=== PATIENT | female | born 1955 | race Hispanic/Latino ===

== ENCOUNTER 2017-11-28 13:08 | Inpatient (IN) | payer OTHER ==
[~2017-11-28] VITALS: Ht 154.9 cm; Wt 81.7 kg
[2017-11-28] MEDS ORDERED: SODIUM CHLORIDE 0.9% 1000ML 1,000 ML IV ONE (14:45)
[2017-11-28] MEDS ORDERED: ACETAMINOPHEN 325 MG TAB ONE (14:46)
[2017-11-28 14:50] LABS: BASOPHILS % (AUTO) 0.2 % (0.0-5.0); EOSINOPHILS % (AUTO) 0.2 % (0.0-8.0); HEMATOCRIT 34.5 % (36-48); LYMPHOCYTES % (AUTO) 6.2 % (21.0-51.0); MEAN CORPUSCULAR HEMOGLOBIN 30.8 pg (27.0-33.0); MEAN CORPUSCULAR HGB CONC 34.2 g/dL (32.0-36.0); MEAN CORPUSCULAR VOLUME 90.2 fL (79-99); MONOCYTES % (AUTO) 2.6 % (3.0-13.0); NEUTROPHILS % (AUTO) 90.8 % (40.0-77.0); PLATELET COUNT (AUTO) 242 K/uL (130-400); RED BLOOD CELL COUNT(AUTO) 3.82 MIL/uL (4.00-5.50); RED CELL DISTRIBUTION WIDTH 13.3 % (11.0-15.5); WHITE BLOOD COUNT (AUTO) 10.6 K/uL (4.8-10.8)
[2017-11-28 14:59] LABS: CREATININE 2.1 mg/dL (0.5-1.5); POTASSIUM 4.9 mmol/L (3.5-5.1)
[2017-11-28 15:04] LABS: BILIRUBIN,TOTAL 0.5 mg/dL (0.2-1.0); TOTAL PROTEIN, SERUM 7.7 g/dL (6.0-8.3)
[2017-11-28 15:32] LABS: APPEARANCE,URINE SL CLOUDY (CLEAR); BILIRUBIN,URINE NEGATIVE (NEGATIVE); COLOR,URINE YELLOW (YELLOW); GLUCOSE, URINE (UA) 100 mg/dL (NEGATIVE); KETONES,URINE NEGATIVE (NEGATIVE); LEUKOCYTE ESTERASE ,URINE TRACE (NEGATIVE); NITRATE,URINE NEGATIVE (NEGATIVE); OCCULT BLOOD,URINE MODERATE (NEGATIVE); PH,URINE 5.5 (5.0-8.0); PROTEIN,URINE >=300 (NEGATIVE); UROBILINOGEN,URINE 0.2 mg/dL (0.2-1.0)
[2017-11-28] MEDS ORDERED: METOPROLOL TARTRATE 1 MG/ML 5ML VIAL IV ONE (15:53)
[2017-11-28 16:03] LABS: AMORPHOUS SEDIMENT,UR Few /LPF (None Seen); BACTERIA,URINE Moderate /HPF (None Seen); SQUAMOUS EPITHELIAL CELL,UR Rare /HPF (0-2)
[2017-11-28] MEDS ORDERED: CEFTRIAXONE SODIUM 1 GM ONE (16:24)
[2017-11-28] MEDS ORDERED: ONDANSETRON HCL 4 MG/2 ML VIAL ONE (16:47)
[2017-11-28] MEDS ORDERED: GLIP10TA9 PO (19:12)
[2017-11-28] MEDS ORDERED: FOSI40TA4 PO (19:12)
[2017-11-28] MEDS ORDERED: NITROGLYCERIN 1GM/1 INCH PACKET TD SCH (19:15)
[2017-11-28] MEDS ORDERED: SODIUM CHLORIDE 0.9% 1000ML 1,000 ML IV SCH (19:15)
[2017-11-28 20:00] VITALS: BP 214/102
[2017-11-28] MEDS: HYDRALAZINE HCL 20 MG/ML VIAL IV PRN (20:18)
[2017-11-28] MEDS ORDERED: GLUCAGON 1MG KIT 1 MG ML IM PRN (20:30)
[2017-11-28 21:33] VITALS: BP 133/68
[2017-11-28 23:44] VITALS: BP 157/74
[2017-11-29] MEDS: LISINOPRIL 40 MG TABLET PO SCH ×2 (00:16→08:14)
[2017-11-29] MEDS: HYDRALAZINE HCL 20 MG/ML VIAL IV PRN ×2 (00:17→17:32)
[2017-11-29] MEDS: FAMOTIDINE/PF 20 MG/2 ML VIAL IV SCH ×3 (00:21→20:38)
[2017-11-29] MEDS: INSULIN HUMULIN R 100 UNIT/ML 3ML SQ SCH ×5 (00:32→20:38)
[2017-11-29 04:00] VITALS: BP 127/59
[2017-11-29 05:08] LABS: ALBUMIN 2.4 g/dL (3.5-5.0); CREATININE 2.1 mg/dL (0.5-1.5); PHOSPHORUS 3.3 mg/dL (2.5-4.9); POTASSIUM 3.8 mmol/L (3.5-5.1)
[2017-11-29] MEDS: GLIPIZIDE 5 MG TABLET PO SCH ×2 (08:14→17:32)
[2017-11-29] MEDS: CEFTRIAXONE SODIUM 1 GM IVP SCH (08:15)
[2017-11-29] MEDS: ENOXAPARIN SODIUM 40 MG/0.4 ML SYRINGE SQ SCH (08:16)
[2017-11-29 08:23] VITALS: BP 174/77
[2017-11-29] MEDS ORDERED: CEFTRIAXONE 1GM/D5W 50ML 50 ML IV SCH (09:00)
[2017-11-29 12:24] VITALS: BP 186/81
[2017-11-29 16:11] LABS: PROTEIN,URINE RANDOM 148.7 mg/dL (0-11.9)
[2017-11-29 16:47] VITALS: BP 185/88
[2017-11-29 19:41] VITALS: BP 148/61
[2017-11-29] MEDS: METOPROLOL TARTRATE 50 MG TAB PO SCH (20:38)
[2017-11-29 23:32] VITALS: BP 125/55
[2017-11-30] VITALS (7 sets, daily range): BP systolic 123–190; BP diastolic 57–76
[2017-11-30] MEDS: HYDRALAZINE HCL 20 MG/ML VIAL IV PRN (04:53)
[2017-11-30 05:34] LABS: HEMATOCRIT 30.2 % (36-48); MEAN CORPUSCULAR HEMOGLOBIN 31.3 pg (27.0-33.0); MEAN CORPUSCULAR HGB CONC 34.4 g/dL (32.0-36.0); MEAN CORPUSCULAR VOLUME 90.8 fL (79-99); PLATELET COUNT (AUTO) 196 K/uL (130-400); RED BLOOD CELL COUNT(AUTO) 3.33 MIL/uL (4.00-5.50); RED CELL DISTRIBUTION WIDTH 13.1 % (11.0-15.5); WHITE BLOOD COUNT (AUTO) 6.4 K/uL (4.8-10.8)
[2017-11-30] MEDS: INSULIN HUMULIN R 100 UNIT/ML 3ML SQ SCH ×4 (05:48→21:00)
[2017-11-30 05:50] LABS: CREATININE 2.1 mg/dL (0.5-1.5); PHOSPHORUS 4.2 mg/dL (2.5-4.9); POTASSIUM 3.1 mmol/L (3.5-5.1)
[2017-11-30] MEDS: DEXTROSE 50%-WATER 50 ML DISP.SYRIN IV PRN ×2 (06:13→16:14)
[2017-11-30 06:22] LABS: EOSINOPHILS % (MANUAL) 1 % (1-6); LYMPHOCYTES % (MANUAL) 16 % (22-44); MAN.DIFF COMMENT-IMPRESSION MANUAL DIFFERENTIAL; MONOCYTES % (MANUAL) 6 % (2-9); PLATELET MORPHOLOGY COMMENT ADEQUATE; SEGMENTED NEUTROPHILS % 77 % (40-70)
[2017-11-30] MEDS: FAMOTIDINE/PF 20 MG/2 ML VIAL IV SCH ×2 (08:34→21:56)
[2017-11-30] MEDS: GLIPIZIDE 5 MG TABLET PO SCH ×2 (08:35→16:33)
[2017-11-30] MEDS: METOPROLOL TARTRATE 50 MG TAB PO SCH ×2 (08:35→21:56)
[2017-11-30] MEDS: CEFTRIAXONE SODIUM 1 GM IVP SCH (08:35)
[2017-11-30] MEDS: LISINOPRIL 40 MG TABLET PO SCH (08:35)
[2017-11-30] MEDS: ENOXAPARIN SODIUM 40 MG/0.4 ML SYRINGE SQ SCH (08:36)
[2017-11-30] MEDS: POTASSIUM CHLORIDE 20 MEQ ERTAB PO SCH (11:26)
[2017-11-30] MEDS ORDERED: DEXTROSE 10%-WATER 1,000 ML IV SCH (18:45)
[2017-12-01 04:20] VITALS: BP 189/83
[2017-12-01] MEDS: HYDRALAZINE HCL 20 MG/ML VIAL IV PRN (04:52)
[2017-12-01 06:13] VITALS: BP 119/51
[2017-12-01] MEDS: INSULIN HUMULIN R 100 UNIT/ML 3ML SQ SCH ×4 (06:15→21:00)
[2017-12-01 07:07] LABS: POTASSIUM 2.9 mmol/L (3.5-5.1)
[2017-12-01] MEDS ORDERED: POTASSIUM CHLORIDE 20 MEQ ERTAB PO SCH (07:30)
[2017-12-01 08:00] VITALS: BP 122/57
[2017-12-01] MEDS: GLIPIZIDE 5 MG TABLET PO SCH (08:00)
[2017-12-01] MEDS: METOPROLOL TARTRATE 50 MG TAB PO SCH ×2 (08:59→19:55)
[2017-12-01] MEDS: CEFTRIAXONE SODIUM 1 GM IVP SCH (08:59)
[2017-12-01] MEDS: FAMOTIDINE/PF 20 MG/2 ML VIAL IV SCH ×2 (08:59→19:55)
[2017-12-01] MEDS: LISINOPRIL 40 MG TABLET PO SCH (08:59)
[2017-12-01] MEDS: ENOXAPARIN SODIUM 40 MG/0.4 ML SYRINGE SQ SCH (09:01)
[2017-12-01] MEDS ORDERED: ACETAMINOPHEN 325 MG TAB PO PRN (09:30)
[2017-12-01] MEDS: LOPERAMIDE HCL 2 MG CAP PO PRN ×2 (09:42→22:56)
[2017-12-01] MEDS: METRONIDAZOLE 500 MG TABLET PO SCH ×2 (09:42→16:39)
[2017-12-01] MEDS: POTASSIUM CHLORIDE 20 MEQ ERTAB PO SCH (10:45)
[2017-12-01 11:00] VITALS: BP 126/59
[2017-12-01 15:47] VITALS: BP 154/69
[2017-12-01] MEDS: DEXTROSE 10% IV SCH (17:42)
[2017-12-01] MEDS: WATER IV SCH (17:42)
[2017-12-01] MEDS: POTASSIUM CHLORIDE IV SCH (17:42)
[2017-12-01 20:29] VITALS: BP 157/66
[2017-12-02 00:31] VITALS: BP 122/42
[2017-12-02] MEDS: METRONIDAZOLE 500 MG TABLET PO SCH ×3 (02:03→16:54)
[2017-12-02 03:57] VITALS: BP 127/51
[2017-12-02] MEDS: INSULIN HUMULIN R 100 UNIT/ML 3ML SQ SCH ×4 (05:40→21:00)
[2017-12-02 07:00] VITALS: BP 126/38
[2017-12-02] MEDS: POTASSIUM CHLORIDE 20 MEQ ERTAB PO SCH (09:11)
[2017-12-02] MEDS: LISINOPRIL 40 MG TABLET PO SCH (09:21)
[2017-12-02] MEDS: METOPROLOL TARTRATE 50 MG TAB PO SCH ×2 (09:21→20:15)
[2017-12-02] MEDS: FAMOTIDINE/PF 20 MG/2 ML VIAL IV SCH ×2 (09:21→20:15)
[2017-12-02] MEDS: CEFTRIAXONE SODIUM 1 GM IVP SCH (09:23)
[2017-12-02] MEDS: ENOXAPARIN SODIUM 40 MG/0.4 ML SYRINGE SQ SCH (09:23)
[2017-12-02 11:14] VITALS: BP 155/62
[2017-12-02 15:37] VITALS: BP 137/65
[2017-12-02] MEDS: DEXTROSE 10% IV SCH (16:54)
[2017-12-02] MEDS: WATER IV SCH (16:54)
[2017-12-02] MEDS: POTASSIUM CHLORIDE IV SCH (16:54)
[2017-12-02 19:54] VITALS: BP 147/83
[2017-12-03 00:31] VITALS: BP 170/71
[2017-12-03] MEDS: METRONIDAZOLE 500 MG TABLET PO SCH ×3 (01:38→17:34)
[2017-12-03 04:31] VITALS: BP 152/51
[2017-12-03] MEDS: INSULIN HUMULIN R 100 UNIT/ML 3ML SQ SCH ×4 (06:20→17:35)
[2017-12-03 07:00] VITALS: BP 132/44
[2017-12-03] MEDS: CEFTRIAXONE SODIUM 1 GM IVP SCH (09:47)
[2017-12-03] MEDS: ENOXAPARIN SODIUM 40 MG/0.4 ML SYRINGE SQ SCH (09:48)
[2017-12-03] MEDS: LISINOPRIL 40 MG TABLET PO SCH (09:48)
[2017-12-03] MEDS: FAMOTIDINE/PF 20 MG/2 ML VIAL IV SCH (09:48)
[2017-12-03] MEDS: METOPROLOL TARTRATE 50 MG TAB PO SCH (09:48)
[2017-12-03] MEDS: DEXTROSE 10% IV SCH (09:49)
[2017-12-03] MEDS: POTASSIUM CHLORIDE IV SCH (09:49)
[2017-12-03] MEDS: POTASSIUM CHLORIDE 20 MEQ ERTAB PO SCH (09:49)
[2017-12-03] MEDS: WATER IV SCH (09:49)
[2017-12-03 11:00] VITALS: BP 148/58
[2017-12-03 15:00] VITALS: BP 149/98
[2017-12-03] MEDS ORDERED: FOSI40TA4 PO (15:20)
[2017-12-03] MEDS ORDERED: METR500T PO (15:20)
== END 2017-12-03 18:00 | disposition home or self-care (01) | DRG 683 ==
LOC: EDH 13:08 → OBSVTOIN 13:09 → EDHIP 13:09 → 3AH 18:35
PROVIDERS: ADMIT Internal Medicine Nephrology; ATTEND Internal Medicine Nephrology
DX: N17.9 Acute kidney failure, unspecified (principal); I16.9 Hypertensive crisis, unspecified; E11.21 Type 2 diabetes mellitus with diabetic nephropathy; E11.51 Type 2 diabetes mellitus with diabetic peripheral angiopathy without gangrene; N30.00 Acute cystitis without hematuria; K52.9 Noninfective gastroenteritis and colitis, unspecified; R80.9 Proteinuria, unspecified; E87.8 Other disorders of electrolyte and fluid balance, not elsewhere classified; N18.9 Chronic kidney disease, unspecified; D64.9 Anemia, unspecified; I12.9 Hypertensive chronic kidney disease with stage 1 through stage 4 chronic kidney disease, or unspecified chronic kidney disease; E87.6 Hypokalemia; E78.00 Pure hypercholesterolemia, unspecified; E11.22 Type 2 diabetes mellitus with diabetic chronic kidney disease; Z90.710 Acquired absence of both cervix and uterus; Z90.49 Acquired absence of other specified parts of digestive tract; Z83.3 Family history of diabetes mellitus; Z82.49 Family history of ischemic heart disease and other diseases of the circulatory system
CPT/HCPCS: 36415; 71046; 76770; 80048; 80053; 80069; 81001; 82570; 82948; 84100; 84132; 84156; 85025; 87088; 87507; 93005; A4218; J0360; J0696; J1650; J1815; J2405; J3480; J3490; J7030; J7070

== ENCOUNTER 2019-06-20 12:42 | Emergency (ER) | payer MEDICARE, OTHER, SELFPAY ==
[~2019-06-20 12:42] MED LIST: FOSI40TA5 PO; GLIP10TA9 PO; METR500T PO
== END 2019-06-20 15:22 | disposition home or self-care (01) ==
LOC: EDH 12:42
DX: K59.00 Constipation, unspecified (principal); E86.0 Dehydration; E11.9 Type 2 diabetes mellitus without complications; I10 Essential (primary) hypertension; Z90.49 Acquired absence of other specified parts of digestive tract; Z98.890 Other specified postprocedural states
CPT/HCPCS: 74018